=== PATIENT | female | born 1960 | race Caucasian/White ===

== ENCOUNTER 2022-03-20 22:38 | Emergency (ER) | payer SELFPAY ==
[2022-03-20] MEDS ORDERED: diphenhydrAMINE 50 MG/ML VIAL ONE (23:15)
[2022-03-20] MEDS ORDERED: Ketorolac Tromethamine 30 MG/ML VIAL ONE (23:15)
[2022-03-20] MEDS ORDERED: Metoclopramide HCl 10 MG/2 ML VIAL ONE (23:15)
[2022-03-20 23:57] LABS: Hemoglobin 12.6 g/dL (12.0-16.0); Mean Corpuscular Hemoglobin 31.6 pg (27.0-31.0); Mean Platelet Volume 10.1 fL (7.4-10.4); Platelet Count 98 thou/uL (130-400); RBC Distribution Width 12.4 % (11.5-14.5); Red Blood Cell (RBC) Count 3.97 mill/uL (4.20-5.40); White Blood Cell (WBC) Count 5.8 thou/uL (4.8-10.8)
[2022-03-21 00:32] LABS: Band 11 % (5-11); Large Platelets SLIGHT; Lymphocytes 14 % (21-51); MDiff Complete? YES; Metamyelocyte 1 % (0-0); Monocytes 9 % (0-10); Neutrophil 64 % (42-75); Platelet Morphology Comment Appears Decreased; RBC Morphology Normal
== END 2022-03-21 00:36 | disposition home or self-care (01) ==
LOC: ERS 22:38
DX: R51.9 Headache, unspecified (principal); I10 Essential (primary) hypertension; F17.210 Nicotine dependence, cigarettes, uncomplicated; Z86.73 Personal history of transient ischemic attack (TIA), and cerebral infarction without residual deficits
CPT/HCPCS: 36415; 70450; 85025; 96374; 96375; J1200; J1885; J2765